=== PATIENT | male | born 1995 | race Caucasian/White ===

== ENCOUNTER 2019-04-02 23:13 | Emergency (ER) | payer MEDICAID ==
[~2019-04-02] VITALS: Ht 175.3 cm; Wt 70.3 kg
[2019-04-02 23:13] VITALS: BP 127/62
== END 2019-04-03 | disposition home or self-care (01) ==
LOC: ER 23:13
DX: R05 Cough (principal)

== ENCOUNTER 2022-01-13 22:45 | Emergency (ER) | payer MEDICAID, OTHER ==
[~2022-01-13] VITALS: Ht 170.2 cm; Wt 79.4 kg
[2022-01-14 00:29] VITALS: BP 134/70
== END 2022-01-14 00:54 | disposition home or self-care (01) ==
LOC: ER 22:55
DX: Z71.1 Person with feared health complaint in whom no diagnosis is made (principal)

== ENCOUNTER 2023-04-02 20:21 | Emergency (ER) | payer MEDICAID ==
[~2023-04-02] VITALS: Ht 177.8 cm; Wt 68.0 kg
[2023-04-02] MEDS ORDERED: IBUP-1955 PO (21:33)
[2023-04-02] MEDS ORDERED: ACET-2605 PO (21:33)
[2023-04-02] MEDS ORDERED: IBUPROFEN 400 MG TABLET ONE (21:42)
[2023-04-02] MEDS: IBUPROFEN 400 MG TABLET PO ONE (21:46)
[2023-04-02 21:48] VITALS: BP 147/76; TEMP 98.6; O2SAT 97
== END 2023-04-02 21:49 | disposition home or self-care (01) ==
LOC: ER 20:25
DX: S09.90XA Unspecified injury of head, initial encounter (principal); Z60.2 Problems related to living alone; W22.8XXA Striking against or struck by other objects, initial encounter; Y93.89 Activity, other specified; Y92.89 Other specified places as the place of occurrence of the external cause; Y99.8 Other external cause status